=== PATIENT | male | born 1970 | race Two or more races ===

== ENCOUNTER 2021-01-23 01:42 | Emergency (ER) | payer SELFPAY ==
[~2021-01-23] VITALS: Ht 175.3 cm; Wt 106.8 kg
[2021-01-23] MEDS ORDERED: POLY10DR3 EACHEYE (02:18)
[2021-01-23] MEDS ORDERED: TRAM-48 PO (02:18)
--- NOTE | 2021-01-23 02:18 | PHYS DOC ---
Past Medical History Past Medical History: Other Additional Past Medical Histor: PT IS POOR HISTORIAN Past Surgical History: Other Additional Past Surgical Histo: PT IS POOR HISTORIAN, "JAW SX" Smoking Status: Current Every Day Smoker Alcohol Use: Heavy Additional Information: "BEER AND WHISKEY DAILY" General Adult EDM: Chief Complaint: ALCOHOL INTOXICATION HPI: HPI: Patient is a 50 year old MALE who is a daily drinker presents with the chief complaint of alcohol abuse. Patient arrived by EMS. Called 911 because of jaw pain. Pain for several weeks. Patient states he has bilateral lower jaw swelling. States he drinks alcohol daily for his pain. On exam-- no deformity or swelling of jaw noted. No dental abscess observed. Side note-- patient with right eye drainage. Review of Systems: Review of Systems: Review of systems: Constitutional symptoms- No fever, no chills. Eyes- Positive Discharge, No Visual Loss Respiratory symptoms- No shortness of breath, No wheezing, No Dyspnea on Ex ertion Cardiovascular Systems; No chest pain, No Palpitations, No syncope Gastrointestinal symptoms: NO abdominal pain, no nausea, no vomiting or diarrhea. Genitourinary symptoms: No dysuria. Musculoskeletal symptoms: No back pain No extremity pain. NEUROLOGICAL Symptoms: No headache, no generalized weakness; No focal Weakness Skin: No rash. HEENT positive jaw pain Heart Score: C/O Chest Pain: N/A Risk Factors: Risk Factors: DM, Current or recent (<one month) smoker, HTN, HLP, family history of CAD, obesity. Risk Scores: Score 0 - 3: 2.5% MACE over next 6 weeks - Discharge Home Score 4 - 6: 20.3% MACE over next 6 weeks - Admit for Clinical Observation Score 7 - 10: 72.7% MACE over next 6 weeks - Early Invasive Strategies Allergies: Allergies: Allergies Coded Allergies Type Severity Reaction Last Updated Verified No Known Drug Allergies 01/23/21 No Physical Exam: PE: General: alert, no acute distress. Skin: warm, dry and intact. HENT: bilateral external ears normal, oropharynx moist, nose normal. Head:: Normocephalic, atraumatic. Neck: Trachea midline. Eyes: EOMI, Normal conjunctiva, right eye green drainage CARDIOVASCULAR: Regular rate and rhythm RESPIRATORY: No respiratory distress Back: Full range of motion. Skin: Warm, dry, no erythema, no rash. MUSCULOSKELETAL: Full range of motion of bilateral upper and lower extremities. GASTROINTESTINAL: Abdomen soft without rebound or guarding. NEUROLOGICAL: Alert and noted to person, place and time. No neurological deficits observed Psychiatric: Cooperative. Normal judgment Current Patient Data: Vital Signs: Vital Signs Date Time Temp Pulse Resp B/P (MAP) Pulse Ox O2 Delivery O2 Flow Rate FiO2 01/23/21 01:42 97.6 81 15 165/105 (125) 97 Room Air 97.6 EKG: EKG: [] Radiology/Procedures: Radiology/Procedures: [] Course & Med Decision Making: Course & Med Decision Making Pertinent Labs and Imaging studies reviewed. (See chart for details) [] Dragon Disclaimer: Dragon Disclaimer: This electronic medical record was generated, in whole or in part, using a voice recognition dictation system. Departure Departure Impression: Primary Impression: Jaw pain Additional Impressions: Alcohol intoxication Conjunctivitis Disposition: HOME / SELF CARE / HOMELESS Condition: STABLE Patient Instructions: Alcohol Intoxication, Bacterial Conjunctivitis, Dental Pain Scripts Polymyxin B Sulf/Trimethoprim (POLYMYXIN B-TMP EYE DROPS) 10 Ml Drops 1 DROP EACHEYE TID for 7 Days, #10 ML 0 Refills Prov: SAHRA BARBA DO 01/23/21 Tramadol Hcl (ULTRAM) 50 Mg Tablet 1 TAB PO PRN Q6HRS PRN for pain MDD 4 Tablet(s) for 7 Days, #28 TAB 0 Refills Prov: SAHRA BARBA DO 01/23/21 SAHRA BARBA DO Jan 23, 2021 02:18
[2021-01-23 04:19] VITALS: BP 143/82
== END 2021-01-23 05:00 | disposition home or self-care (01) ==
LOC: ER 01:42
DX: R68.84 Jaw pain (principal); F10.229 Alcohol dependence with intoxication, unspecified; Y90.9 Presence of alcohol in blood, level not specified; H10.9 Unspecified conjunctivitis; F17.200 Nicotine dependence, unspecified, uncomplicated
CPT/HCPCS: 99284